=== PATIENT | female | born 1935 | race Caucasian/White ===

== ENCOUNTER 2016-07-30 14:17 | Emergency (ER) | payer MEDICARE, OTHER | END 2016-07-30 18:26 | disposition short-term general hospital (02) | LOC: ER 14:17 | DX: R51 Headache (principal); I10 Essential (primary) hypertension; R20.0 Anesthesia of skin; Z79.82 Long term (current) use of aspirin; Z88.5 Allergy status to narcotic agent; Z79.899 Other long term (current) drug therapy; Z90.710 Acquired absence of both cervix and uterus | CPT/HCPCS: 36415; 70496; 96374; 96375; J0360; Q9967 ==